=== PATIENT | female | born 1975 | race Caucasian/White ===

== ENCOUNTER 2021-07-16 17:27 | Emergency (ER) | payer BC ==
[~2021-07-16] VITALS: Ht 172.7 cm; Wt 63.5 kg
[2021-07-16 17:50] VITALS: BP 139/86
[2021-07-16] MEDS ORDERED: IBUP-1955 PO (18:06)
[2021-07-16] MEDS ORDERED: AMOX-430 PO (18:06)
[2021-07-16] MEDS ORDERED: AMOX/CLAVULANATE 875 MG TABLET ONE (18:19)
[2021-07-16] MEDS ORDERED: TDAP [DIPH/PERTUSSIS/TET] 0.5 ML VIAL IM ONE ×2 (18:19→18:30)
[2021-07-16] MEDS ORDERED: AMOX/CLAVULANATE 875 MG TABLET PO ONE (18:30)
== END 2021-07-16 18:32 | disposition home or self-care (01) ==
LOC: ER 18:01
DX: S61.411A Laceration without foreign body of right hand, initial encounter (principal); W54.0XXA Bitten by dog, initial encounter; Y93.89 Activity, other specified; Y92.89 Other specified places as the place of occurrence of the external cause; Y99.8 Other external cause status
CPT/HCPCS: 29125; 90471; 90715; 99283; L3763

== ENCOUNTER 2021-07-18 12:58 | Emergency (ER) | payer BC ==
[~2021-07-18] VITALS: Ht 167.6 cm; Wt 68.0 kg
[~2021-07-18 12:58] MED LIST: AMOX-430 PO; IBUP-1955 PO
[2021-07-18 13:07] VITALS: BP 134/81
--- NOTE | 2021-07-18 13:33 | NUR ---
Patient discharged to home in stable condition. Written and verbal after care instructions given. Patient verbalizes understanding of instruction.
== END 2021-07-18 13:33 | disposition home or self-care (01) ==
LOC: ER 13:01
DX: S61.451D Open bite of right hand, subsequent encounter (principal); Z79.899 Other long term (current) drug therapy; W54.0XXD Bitten by dog, subsequent encounter